=== PATIENT | male | born 1975 | race Caucasian/White ===

== ENCOUNTER 2017-02-08 18:31 | Emergency (ER) | payer OTHER ==
[~2017-02-08] VITALS: Ht 188 cm; Wt 109.5 kg
[2017-02-08 20:00] LABS: ADD MIUA? NO; BILIRUBIN NEGATIVE; BLOOD NEGATIVE; COLOR YELLOW ((YELLOW)); GLUCOSE (STRIP) NEGATIVE; KETONES NEGATIVE; LEUKOCYTES NEGATIVE; NITRITE NEGATIVE; PROTEIN (STRIP) NEGATIVE; SPECIFIC GRAVITY 1.019 (1.000-1.030); UCUL ADDED? NO; UROBILINOGEN 0.2 MG/DL (0.2-1.0)
[2017-02-08 20:09] LABS: HEMATOCRIT 44.5 % (38.0-50.0); MCH 29.4 PG (29.0-34.0); MCHC 33.3 G/DL (30.0-36.0); MCV 88.5 FL (86-99); MEAN PLAT.VOLUME 9.8 uM^3 (9.0-12.4); PLATELET COUNT 179 K/uL (156-360); RBC DIS.WIDTH-CV 12.9 % (11.8-14.6); RBC DIS.WIDTH-SD 41.4 % (39-53); RED BLOOD COUNT 5.03 M/uL (4.00-5.50); WHITE BLOOD COUNT 12.6 K/uL (4.1-10.2)
[2017-02-08 20:29] LABS: CHLORIDE 103 mEq/L (99-109); POTASSIUM 4.3 mEq/L (3.7-5.4); SODIUM 135 mEq/L (136-147)
[2017-02-08 20:31] LABS: GLUCOSE 92 mg/dL (70-99)
[2017-02-08 20:32] LABS: ANION GAP 11 MEQ/L (2-14)
[2017-02-08 20:33] LABS: TOTAL BILIRUBIN 0.7 mg/dL (0.0-1.0)
[2017-02-08 20:34] LABS: ALKALINE PHOSPHATASE 57 IU/L (3-129)
[2017-02-08 20:35] LABS: GFR ESTIMATE (CALCULATED) > 59 mL/min/
[2017-02-08 20:36] LABS: UREA NITROGEN (BUN) 12 mg/dL (9-23)
[2017-02-08] MEDS ORDERED: ZESTRIL20 MG PO (20:46)
[2017-02-08] MEDS ORDERED: ZOFRAN4 MG PO (20:47)
[2017-02-08 21:40] LABS: EOSINOPHIL (%) 1.2 % (0-5); EOSINOPHIL COUNT 0.2 K/uL (0-0.3); IMMATURE GRANULOCYTE (%) 0.5 % (0.0-0.7); IMMATURE GRANULOCYTE COUNT 0.1 K/uL; INSTRUMENT ABS NEUTROPHIL CT 9.7 K/uL; LYMPHOCYTE COUNT 1.4 K/uL (1.0-2.8); MONOCYTE (%) 11.3 % (3-12); MONOCYTE COUNT 1.5 K/uL (0-0.8); NEUTROPHIL (%) 75.7 % (45-76); NEUTROPHIL COUNT 9.7 K/uL (1.8-6.4)
[2017-02-08 21:50] LABS: LIPASE 36 U/L (1.0-51.0)
[2017-02-08] MEDS ORDERED: FLAGYL500 MG PO (23:19)
[2017-02-08] MEDS ORDERED: CIPRO500 MG PO (23:19)
[2017-02-08] MEDS ORDERED: COLACE100 MG PO (23:19)
[2017-02-08] MEDS ORDERED: ULTRACET1 TABLET PO (23:19)
[2017-02-08 23:44] VITALS: BP 132/89
== END 2017-02-08 23:44 | disposition home or self-care (01) ==
LOC: EME 18:31
DX: K57.32 Diverticulitis of large intestine without perforation or abscess without bleeding (principal); D73.4 Cyst of spleen
CPT/HCPCS: 74177; 80053; 81003; 83605; 83690; 85025; 85027; 87040; 99281; 99284; J1885; J2405; J3010; J7030

== ENCOUNTER 2017-07-05 10:19 | Emergency (ER) | payer OTHER ==
[~2017-07-05] VITALS: Ht 188 cm; Wt 117.3 kg
[~2017-07-05 10:19] MED LIST: CIPRO500 MG PO; COLACE100 MG PO; FLAGYL500 MG PO; ULTRACET1 TABLET PO; ZESTRIL20 MG PO; ZOFRAN4 MG PO
[2017-07-05 11:13] LABS: HEMATOCRIT 45.8 % (38.0-50.0); MCH 29.9 PG (29.0-34.0); MCHC 33.4 G/DL (30.0-36.0); MCV 89.5 FL (86-99); MEAN PLAT.VOLUME 10.3 uM^3 (9.0-12.4); PLATELET COUNT 179 K/uL (156-360); RBC DIS.WIDTH-CV 13.2 % (11.8-14.6); RBC DIS.WIDTH-SD 43.4 % (39-53); RED BLOOD COUNT 5.12 M/uL (4.00-5.50); WHITE BLOOD COUNT 11.6 K/uL (4.1-10.2)
[2017-07-05 11:21] LABS: CHLORIDE 104 mEq/L (99-109); POTASSIUM 3.9 mEq/L (3.7-5.4); SODIUM 137 mEq/L (136-147)
[2017-07-05 11:23] LABS: GLUCOSE 97 mg/dL (70-99)
[2017-07-05 11:24] LABS: ANION GAP 10 MEQ/L (2-14)
[2017-07-05 11:25] LABS: TOTAL BILIRUBIN 1.2 mg/dL (0.0-1.0)
[2017-07-05 11:27] LABS: ALKALINE PHOSPHATASE 49 IU/L (3-129); GFR ESTIMATE (CALCULATED) > 59 mL/min/
[2017-07-05 11:28] LABS: UREA NITROGEN (BUN) 15 mg/dL (9-23)
[2017-07-05 11:42] LABS: ADD MIUA? NO; BILIRUBIN NEGATIVE; BLOOD NEGATIVE; COLOR YELLOW ((YELLOW)); GLUCOSE (STRIP) NEGATIVE; KETONES NEGATIVE; LEUKOCYTES NEGATIVE; NITRITE NEGATIVE; PROTEIN (STRIP) 30; SPECIFIC GRAVITY 1.025 (1.000-1.030); UCUL ADDED? NO; UROBILINOGEN 0.2 MG/DL (0.2-1.0)
[2017-07-05] MEDS ORDERED: CIPRO500 MG PO (14:23)
[2017-07-05] MEDS ORDERED: FLAGYL500 MG PO (14:23)
[2017-07-05] MEDS ORDERED: ZOFRAN ODT4 MG PO (14:23)
[2017-07-05] MEDS ORDERED: BENTYL20 MG PO (14:23)
[2017-07-05 14:28] VITALS: BP 123/84
== END 2017-07-05 14:28 | disposition home or self-care (01) ==
LOC: EME 10:19
DX: K57.32 Diverticulitis of large intestine without perforation or abscess without bleeding (principal); R10.32 Left lower quadrant pain; I10 Essential (primary) hypertension
CPT/HCPCS: 74176; 80053; 81003; 85027; 99281; 99284; J1885